=== PATIENT | female | born 1990 ===

== ENCOUNTER 2023-04-08 04:25 | Inpatient (IN) | payer BC ==
[2023-04-08] MEDS ORDERED: Sodium Chloride 0.9% 10 ML Syringe FLUSH PRN (04:53)
[2023-04-08] MEDS ORDERED: Lidocaine 1% 50 ML MDV INJECT PRN (04:53)
[2023-04-08] MEDS ORDERED: Methylergonovine 0.2 MG/1 ML Amp IM PRN ×2 (04:53→13:25)
[2023-04-08] MEDS ORDERED: Ampicillin 2 GM in Sodium Chloride 0.9% 100 ML IV ONE (04:53)
[2023-04-08] MEDS ORDERED: Misoprostol 200 MCG Tab PO PRN (04:53)
[2023-04-08] MEDS ORDERED: Water For Irrigation,Sterile 1,000 ML Container IRR PRN (04:53)
[2023-04-08] MEDS ORDERED: Butorphanol 1 MG/ML SDV IVPUSH PRN (04:53)
[2023-04-08] MEDS ORDERED: Sodium Chloride 0.9% 20 ML SDV IV PRN (04:53)
[2023-04-08] MEDS ORDERED: Tranexamic Acid 1,000 MG in Sodium Chloride 0.9% 100 ML IV PRN ×2 (04:53→13:25)
[2023-04-08] MEDS ORDERED: Carboprost Tromethamine 250 MCG/1 mL Vial IM PRN (04:53)
[2023-04-08] MEDS ORDERED: Ondansetron 4 MG/2 ML SDV IVPUSH PRN (04:53)
[2023-04-08] MEDS ORDERED: Sodium Chloride 0.9% 2.5 ML Syringe FLUSH PRN (04:53)
[2023-04-08] MEDS ORDERED: Oxytocin/0.9 % Sodium Chloride 30 UNIT/500 ML BAG IV SCH (05:00)
[2023-04-08] MEDS: Lactated Ringers 1,000 ML IV SCH ×3 (05:00→14:04)
[2023-04-08 06:24] LABS: HEMOGLOBIN 13.6 g/dL (12.0-16.0); MEAN CORPUSCULAR HEMOGLOBIN 31.2 pg (27.0-32.0); MEAN CORPUSCULAR HGB CONC 34.9 g/dL (31.0-37.0); MEAN CORPUSCULAR VOLUME 89.4 fL (80.0-98.0); PLATELET COUNT,PLT 295 K/uL (150-400); RED BLOOD CELL COUNT 4.36 M/uL (4.30-5.90); WHITE BLOOD CELL COUNT,WBC 14.74 K/uL (4.0-11.0)
[2023-04-08] MEDS ORDERED: Ropivacaine/PF 400 MG/200 ML PCA ONE (07:35)
[2023-04-08] MEDS ORDERED: Bupivacaine 0.5% 10 ML SDV ONE (07:35)
[2023-04-08] MEDS ORDERED: Ampicillin 1 GM in Sodium Chloride 0.9% 50 ML IV SCH (09:00)
[2023-04-08] MEDS ORDERED: Witch Hazel Medicated Pads 40/Jar TOP PRN (13:25)
[2023-04-08] MEDS ORDERED: Ibuprofen 400 MG Tab PO PRN (13:25)
[2023-04-08] MEDS ORDERED: Lanolin 100% Cream 7 GM Tube TOP PRN (13:25)
[2023-04-08] MEDS ORDERED: Benzocaine/Menthol 20%-0.5% Spray 78 GM Cannister TOP PRN (13:25)
[2023-04-08] MEDS ORDERED: Docusate Sodium 100 MG Cap PO PRN (13:25)
[2023-04-08] MEDS ORDERED: Acetaminophen 500 MG Tab PO PRN (13:25)
[2023-04-08] MEDS ORDERED: Bisacodyl 10 MG Supp RECTAL PRN (13:25)
[2023-04-08 14:27] LABS: PH,UMBILICAL ARTERIAL 7.237 (7.18-7.38); PH,UMBILICAL VENOUS 7.294 (7.25-7.45)
[2023-04-08] MEDS: Ibuprofen 800 MG Tab PO PRN ×2 (15:53→22:21)
[2023-04-08] MEDS: Acetaminophen 500 MG Tab PO PRN ×2 (15:55→20:59)
[2023-04-09 05:43] LABS: HEMOGLOBIN 12.2 g/dL (12.0-16.0)
[2023-04-09] MEDS: Ibuprofen 800 MG Tab PO PRN (08:19)
== END 2023-04-10 12:20 | disposition home or self-care (01) | DRG 560 ==
LOC: MW.OBCHECK 04:25 → MW.OB 04:27 → MW.OBCHECK 04:55 → OBSVTOIN 12:55 → MW.OB 16:19
PROVIDERS: ADMIT Obstetrics & Gynecology; ATTEND Obstetrics & Gynecology
PROC: 10E0XZZ Delivery of Products of Conception, External Approach (ICD-10-PCS; principal; 2023-04-08)
PROC: 3E0R3BZ Introduction of Anesthetic Agent into Spinal Canal, Percutaneous Approach (ICD-10-PCS; 2023-04-08)
PROC: 00HU33Z Insertion of Infusion Device into Spinal Canal, Percutaneous Approach (ICD-10-PCS; 2023-04-08)
DX: O42.02 Full-term premature rupture of membranes, onset of labor within 24 hours of rupture (principal); Z37.0 Single live birth; O99.824 Streptococcus B carrier state complicating childbirth; O69.81X0 Labor and delivery complicated by cord around neck, without compression, not applicable or unspecified; O76 Abnormality in fetal heart rate and rhythm complicating labor and delivery; Z3A.39 39 weeks gestation of pregnancy
CPT/HCPCS: 36415; 51702; 59025; 59409; 82803; 85014; 85018; 85027; 85460; 86592; 86850; 86900; 86901; A9270-GY; J0290; J0595; J2405; J2590; J2790; J2795; J3490; J7120